=== PATIENT | female | born 1960 ===

== ENCOUNTER 2018-09-20 09:27 | Outpatient (CLI) | payer MEDICAID | END 2018-09-20 09:28 | disposition home or self-care (01) | LOC: C.MAMMO 09:27 | DX: N64.4 Mastodynia (principal) ==

== ENCOUNTER 2018-11-26 08:58 | Outpatient (CLI) | payer MEDICAID | END 2018-11-26 08:59 | disposition home or self-care (01) | LOC: C.LAB 08:58 ==

== ENCOUNTER 2018-12-13 09:39 | Outpatient (CLI) | payer MEDICAID | END 2018-12-13 09:40 | disposition home or self-care (01) | LOC: C.MRIC 09:39 ==